=== PATIENT | male | born 1975 | race Caucasian/White ===

== ENCOUNTER 2022-09-01 12:35 | Emergency (ER) | payer BC ==
[~2022-09-01] VITALS: Ht 167.6 cm; Wt 70.8 kg
[2022-09-01 13:04] VITALS: BP 122/75
--- NOTE | 2022-09-01 13:33 | NUR ---
PT TAKEN TO XRAY VIA WC
[2022-09-01] MEDS ORDERED: KETOROLAC 30 MG/ML VIAL IM ONE (14:05)
[2022-09-01] MEDS ORDERED: MORPHINE SULFATE 4 MG/ML SYR IVP ONE ×2 (14:50→16:30)
[2022-09-01] MEDS ORDERED: LIDOCAINE 1% 500 MG/ 50 ML VIAL INJ ONE (16:05)
--- NOTE | 2022-09-01 16:29 | NUR ---
ASSUMED PATIENT CARE, NURSING ASSESSMENT COMPLETED.
[2022-09-01] MEDS ORDERED: LIDOCAINE MPF 1% 5 ML ONE (16:56)
[2022-09-01 17:04] VITALS: BP 120/68
[2022-09-01] MEDS ORDERED: ACET-8905 PO (17:26)
[2022-09-01] MEDS ORDERED: IBUP-2213 PO (17:26)
--- NOTE | 2022-09-01 17:39 | NUR ---
Patient discharged with v/s stable. Written and verbal after care instructions ABOUT METACARPAL FRACTURE given and explained. Patient alert, oriented and verbalized understanding of instructions. Ambulatory with steady gait. All questions addressed prior to discharge. ID band removed. Patient advised to follow up with PMD. Rx of MOTRIN AND NORCO5-325 given. Patient educated on indication of medication including possible reaction and side effects. Opportunity to ask questions provided and answered.
== END 2022-09-01 17:39 | disposition home or self-care (01) ==
LOC: MED 12:35
DX: S62.336A Displaced fracture of neck of fifth metacarpal bone, right hand, initial encounter for closed fracture (principal); R03.0 Elevated blood-pressure reading, without diagnosis of hypertension; Z79.899 Other long term (current) drug therapy; W11.XXXA Fall on and from ladder, initial encounter; Y93.89 Activity, other specified; Y92.89 Other specified places as the place of occurrence of the external cause; Y99.8 Other external cause status
CPT/HCPCS: 26670; 73130; 96372; 96374; 99284; J1885; J2001; J2270; Q0092